=== PATIENT | male | born 1985 | race African-American/Black ===

== ENCOUNTER 2017-01-14 06:44 | Emergency (ER) | payer SELFPAY ==
--- NOTE | 2017-01-14 07:25 | PDOC ---
History of Present Illness - General Stated Complaint: SORE THROAT Time Seen by Provider: 01/14/17 07:25 History Source: Patient Exam Limitations: No Limitations - History of Present Illness Initial Comments: 01/14/17 09:00 CHIEF COMPLAINT: Throat sweeling PCP: No PCP HISTORY OF PRESENT ILLNESS: 31 year old male presented to the ED with "throat swelling". A/c to the patient , he developed swelling over the uvula since 3 days, has difficulty in swallowing, painful on/off, feels like "choking" and gets short of breath on/ off while he chokes. Patient mentions he ate spicy pasta the night before. Patient has had similar episode in the past, this is his third episode. The first time, he visited ED, was given medication and was sent home. Last year which was his second episode, took Ibuprofen and he felt better. Doesn't know what triggers it. Denies drooling of saliva, fever, chills, rigors, sweating, chest pain, palpitation, cough, abdominal pain, nausea or vomiting. Bowel/Bladder habit normal. Sleep/Appetite disturbed since his illness. Patient also mentions that his 10 year old daughter gets strep throat frequently , recently got treated with antibiotics. Recent Travel: None PAST MEDICAL HISTORY: None PAST SURGICAL HISTORY: None Social History: Smoking: Smokes marijuana 2joints/day. Doesn't smoke cigarette Alcohol: Drinks 1/2 bottle of whiskey everyday. Drugs: Marijuana only. Sexual Hx: 2 sexual partners in the last year uses condoms Family History: Unknown Allergies: NKDA Past History - Past Medical History Allergies/Adverse Reactions: Allergies Allergy/AdvReac Type Severity Reaction Status Date / Time No Known Allergies Allergy Verified 01/14/17 07:25 Home Medications: Ambulatory Orders No Home Medications 0 dose .ROUTE UTDICT 06/28/12 - Psycho/Social/Smoking Cessation Hx Anxiety: No Suicidal Ideation: No Smoking Status: Yes Smoking History: Current every day smoker Number of Cigarettes Smoked Daily: 0 Review of Systems - Review of Systems Able to Perform ROS?: Yes Comments:: 01/14/17 09:29 CONSTITUTIONAL: Absent: fever, chills, diaphoresis, generalized weakness, malaise, loss of appetite HEENT: Present: throat pain, throat swelling, difficulty swallowing Absent: rhinorrhea, nasal congestion, , mouth swelling, ear pain, eye pain, visual Changes CARDIOVASCULAR: Absent: chest pain, syncope, palpitations, irregular heart rate, lightheadedness , peripheral edema RESPIRATORY: Absent: cough, shortness of breath, dyspnea with exertion, orthopnea, wheezing, stridor, hemoptysis GASTROINTESTINAL: Absent: abdominal pain, abdominal distension, nausea, vomiting, diarrhea, constipation, melena, hematochezia GENITOURINARY: Absent: dysuria, frequency, urgency, hesitancy, hematuria, flank pain, genital pain MUSCULOSKELETAL: Absent: myalgia, arthralgia, joint swelling SKIN: Absent: rash, itching, pallor HEMATOLOGIC/IMMUNOLOGIC: Absent: easy bleeding, easy bruising, lymphadenopathy, frequent infections ENDOCRINE: Absent: unexplained weight gain, unexplained weight loss, heat intolerance, cold intolerance NEUROLOGIC: Absent: headache, focal weakness or paresthesias, dizziness, unsteady gait, seizure, mental status changes, bladder or bowel incontinence PSYCHIATRIC: Absent: anxiety, depression, suicidal or homicidal ideation, hallucinations. Is the patient limited Austrian proficient: No *Physical Exam - Physical Exam Comments: 01/14/17 09:31 PE: GENERAL: Awake, alert, and fully oriented, in no acute distress HEAD: No signs of trauma EYES: PERRLA, EOMI, sclera anicteric, conjunctiva clear ENT: Swollen uvula extending to the back of the throat,uvula deviated towards the right, left tonsils enlarged, submandibular lymph nodes enlarged NECK: Normal ROM, supple, JVD, or masses LUNGS: Breath sounds equal, clear to auscultation bilaterally. No wheezes, and no crackles.. HEART: Regular rate and rhythm, normal S1 and S2, no murmurs, rubs or gallops ABDOMEN: Soft, nontender, normoactive bowel sounds. No guarding, no rebound. No masses EXTREMITIES: Normal range of motion, no edema. No clubbing or cyanosis. No cords, erythema, or tenderness NEUROLOGICAL: Cranial nerves II through XII grossly intact. Normal speech, normal gait SKIN: Warm, Dry, normal turgor, no rashes or lesions noted. 01/14/17 13:20 ED Treatment Course - LABORATORY CBC & Chemistry Diagram: 01/14/17 08:50 01/14/17 08:50 Medical Decision Making - Medical Decision Making 01/14/17 07:20 Patient seen and examined at bed side. Vitals, unremarkable. Physical finding positive for Swollen uvula extending to the back of the throat,uvula deviated towards the right, left tonsils enlarged, submandibular lymph nodes enlarged Will order basic labs, monospot test, rapid strep test, UA, CXR IV NS @ 100mls/hr IV Ibuprofen 800mg stat IV Decadron 10mg 01/14/17 12:[address] Jose Huffman (ENT). He came to to the ED and performed flexible laryngoscope. As per his recommendations will send him home with oral antibiotics and steroids and to follow up with him at his office and there is no indication for admission at this time. A/P: # Uvular edema and possible pharyngitis Patient is hemodynamically stable, has no drooling, is able to swallow and talk without change in the voice. No complaints of difficulty in breathing. Hence he can be discharged home Patient has been advised to see Dr. Huffman in a week and to return to the Emergency Department if symptoms persist or develops new symptoms. Will send the patient on Prednisone and Augmentin Illness, Investigation and Plan of care explained to the patient. He verbalized understanding. Case seen and discussed with Dr. Azul. 01/14/17 13:33 *DC/Admit/Observation/Transfer Diagnosis at time of Disposition: Uvular edema - Discharge Dispostion Admit: No - Patient Instructions Printed Discharge Instructions: Sore Throat Additional Instructions: Your uvula is swollen and you may have had pharyngitis recently. Will give you antibiotics and steroid. Please take it as directed. Please visit ENT doctor this week at his office. Please return to the Emergency Department if symptoms persist or if any new symptoms develop.
[2017-01-14 07:28] VITALS: BP 111/66; PULSE 62; TEMP 98.1; BMI 20.9
[2017-01-14] MEDS ORDERED: IBUPROFEN 800 MG/8 ML IJ IVPB ONE ×2 (07:54→08:20)
[2017-01-14] MEDS ORDERED: DEXAMETHASONE SOD PHOSPHATE 10 MG/1 ML VIAL IVPB ONE (07:54)
[2017-01-14] MEDS ORDERED: SODIUM CHLORIDE 1,000 ML IV SCH (08:00)
[2017-01-14] MEDS ORDERED: DEXAMETHASONE SOD PHOSPHATE 10 MG/1 ML VIAL ONE (08:20)
--- NOTE | 2017-01-14 08:43 | PDOC ---
Attending Attestation - Resident Resident Name: Corie Portillo - ED Attending Attestation I have performed the following: I have examined & evaluated the patient, The case was reviewed & discussed with the resident, I agree w/resident's findings & plan, Exceptions are as noted - HPI HPI: 01/14/17 08:38 This is a 31 yo m presenting to the ER with a complaint of pain with swallowing Pt states that his symptoms have been present for the past 4 days No fevers No chills no vocal changes tolerating po pt noted uvula swelling - Physicial Exam PE: 01/14/17 08:43 On examination: uvula edema Uvula down pt throat No muffling of pt voice No drooling (+) lymph node enlargement - Medical Decision Making 01/14/17 08:44 will give motrin, decadron will send monospot will send rapid strep Pt may need to stay due to uvula edema 01/14/17 14:06 Patient seen in the ER by Dr. Huffman and is status post upper airway evaluation. Patient uvula is indeed edematous and appears to have minor trauma. Patient is safe to be discharged home Patient can take antibiotics and prednisone. Patient given strict return precautions Discharge Disposition - Diagnosis Uvular edema - Discharge Dispostion Disposition: HOME Condition at time of disposition: Improved Admit: No - Prescriptions Prescriptions: Amoxicillin/Potassium Clav [Augmentin 875-125 Tablet] 1 each PO BID #10 tablet Prednisone 40 mg PO DAILY #5 tablet - Referrals - Patient Instructions Printed Discharge Instructions: Sore Throat Additional Instructions: Your uvula is swollen and you may have had pharyngitis recently. Will give you antibiotics and steroid. Please take it as directed. Please visit ENT doctor this week at his office. Please return to the Emergency Department if symptoms persist or if any new symptoms develop. - Post Discharge Activity Work/School Note: Back to Work
[2017-01-14 08:56] LABS: BASOPHIL 0.5 % (0-2.0); EOSINOPHIL 0.6 % (0-4.5); MCH 33.7 pg (25.7-33.7); MCHC 33.5 g/dl (32.0-35.9); MEAN CELL VOLUME 100.6 fl (80-96); MEAN PLT VOLUME 8.4 fl (7.5-11.1); PLATELET COUNT 159 K/MM3 (134-434); RDW 12.4 % (11.9-15.9); WHITE BLOOD COUNT 9.1 K/mm3 (4.0-10.0)
[2017-01-14 09:33] LABS: ALBUMIN 3.8 g/dl (3.4-5.0); ALK PHOS 72 U/L (45-117); ANION GAP 10 (8-16); BILIRUBIN,TOTAL 0.8 mg/dL (0.2-1.0); CALCIUM 8.9 mg/dL (8.5-10.1); CO2 28 mmol/L (21-32); CREATININE 0.9 mg/dL (0.7-1.3); GLUCOSE,RANDOM 99 mg/dL (74-106); SGOT/AST 18 U/L (15-37); SGPT/ALT 22 U/L (12-78); TOT PROT 7.1 g/dl (6.4-8.2)
[2017-01-14 10:30] LABS: URINE APPEARANCE CLEAR; URINE BILIRUBIN NEGATIVE (NEGATIVE); URINE BLOOD NEGATIVE (NEGATIVE); URINE COLOR YELLOW; URINE GLUCOSE (UA) NEGATIVE (NEGATIVE); URINE KETONE TRACE (NEGATIVE); URINE NITRITE NEGATIVE (NEGATIVE); URINE UROBILINOGEN 2.0 E.U/dl E.U./dl (0.2-1.0)
[2017-01-14 10:33] LABS: URINE LEUK ESTERASE TRACE (NEGATIVE); URINE PROTEIN 1+ (NEGATIVE)
[2017-01-14 10:34] LABS: URINE MUCUS FEW; URINE RBC <1 /hpf (0-3); URINE WBC 10 /hpf (3-5)
--- NOTE | 2017-01-14 17:37 | CON.ENT ---
Consult Consult Specialty:: ENT Referred by:: Verenice Azul MD Reason for Consultation:: swollen uvula - History of Present Illness Chief Complaint: swollen uvula History of Present Illness: 31 yo M with recent sore throat, had pain, some neck discomfort, was not on any meds, no PMD, took Motrin ate pasta with spicy sauce last night at a restaurant, this morning woke with swelling in his throat PE in ER shows markedly swollen uvula rx IV Decadron and Benadryl improving breathing fine, was swallowing fine, voice clear feels need to clear throat because of swollen uvula, sometimes goes onto tongue. no prior problems, denies reflux, allergies or prior problems with food or medications - History Source History Provided By: Patient Limitations to Obtaining History: No Limitations - Smoking History Smoking history: Current every day smoker Aproximately how many cigarettes per day: 0 Home Medications - Allergies Allergies/Adverse Reactions: Allergies Allergy/AdvReac Type Severity Reaction Status Date / Time No Known Allergies Allergy Verified 01/14/17 07:25 - Home Medications Home Medications: Ambulatory Orders No Home Medications 0 dose .ROUTE UTDICT 06/28/12 Amoxicillin/Potassium Clav [Augmentin 875-125 Tablet] 1 each PO BID #10 tablet 01/14/17 Prednisone 40 mg PO DAILY #5 tablet 01/14/17 Family Disease History - Family Disease History Family Disease History: Other: Daughter (alive and well) Physical Exam-ENT Vital Signs: Vital Signs Temperature 98.1 F 01/14/17 07:25 Pulse Rate 62 01/14/17 07:25 Respiratory Rate 17 01/14/17 07:25 Blood Pressure 111/66 01/14/17 07:25 O2 Sat by Pulse Oximetry (%) 99 01/14/17 07:25 Constitutional: Yes: No Distress, Calm Head: Yes: WNL Face: Yes: WNL Eyes: Yes: WNL Nasal Passage: Yes: WNL Oral/Pharynx: Yes: Other (teeth, tongue, hard palate floor of mouth normal tonsils small, no infection, ++markedly swollen uvula thick, cannot see tip. Flexible laryngoscopy shows uvula into vallecula epiglottis normal, no epiglottitis, endolarynx WNL, vocal cords mobile symmetric, no stridor or respiratory distress.) Outer Ear: Yes: WNL Ear Canal: Yes: Cerumen Tympanic Membrane: Yes: Other (WNL left, not visualized right) Neck: Yes: WNL Respiratory: Yes: WNL Extremities: Yes: WNL Neurological: Yes: Alert, Oriented Psychiatric: Yes: WNL, Alert, Oriented (teeth gums hard palate normal, tongue normal, uvula very swollen and elongated, tip not visible transorally; flexible laryngoscopy shows normal base of tongue, uvula goes into valllecula, epiglottis normal, no edema vocal cords mobile symmetric, voice clear and strong , no stridor or respiratory distress)
== END 2017-01-14 14:14 | disposition home or self-care (01) ==
LOC: JER 06:44
PROC: 3E0333Z Introduction of Anti-inflammatory into Peripheral Vein, Percutaneous Approach (ICD-10-PCS; principal; 2017-01-14)
DX: K12.2 Cellulitis and abscess of mouth (principal); J35.1 Hypertrophy of tonsils; F10.10 Alcohol abuse, uncomplicated; F12.10 Cannabis abuse, uncomplicated
CPT/HCPCS: 36415; 71020-TC; 80053; 81003; 81015; 85025; 86308; 87070; 87430; 99281-25

== ENCOUNTER 2019-02-12 06:34 | Emergency (ER) | payer OTHER ==
[2019-02-12 06:46] VITALS: BP 169/92; PULSE 84; TEMP 98.8; BMI 28.2
[2019-02-12 08:59] LABS: URINE APPEARANCE CLEAR; URINE BILIRUBIN NEGATIVE (<2.0 mg/dL); URINE COLOR YELLOW; URINE GLUCOSE (UA) NEGATIVE (NEGATIVE); URINE KETONE TRACE (NEGATIVE); URINE LEUK ESTERASE NEGATIVE (NEGATIVE); URINE NITRITE NEGATIVE (NEGATIVE); URINE PROTEIN NEGATIVE (NEGATIVE); URINE UROBILINOGEN 0.2 mg/dL (0.2-1.0)
--- NOTE | 2019-02-12 09:22 | PDOC ---
History of Present Illness - General Chief Complaint: Urinary Catheter Problem Stated Complaint: Abdominal distention Time Seen by Provider: 02/12/19 07:48 History Source: Patient Exam Limitations: No Limitations - History of Present Illness Initial Comments: 02/12/19 09:19 Pt is a 33yo M with no significant PMH presenting to ED because his girlfriend told him she "had bacteria" 4 days ago. Pt only has one partner and is not using protection. He denies dysuria, hematuria, discharge, rashes, lesions, testicular pain/swelling, fevers, chills, cough, congestion, sore throat, abdominal pain, n/v/d, flank pain. Pt said he had STD's years ago but was treated with a shot and antibiotics. Last tested for HIV last month and it was negative. PMD: Arovas PMH: none PSH: none Allergies: nkda Meds: none Social: marijuana, occasional alcohol use Past History - Past Medical History Allergies/Adverse Reactions: Allergies Allergy/AdvReac Type Severity Reaction Status Date / Time No Known Allergies Allergy Verified 02/12/19 06:46 Home Medications: Ambulatory Orders NK [No Known Home Medication] 02/12/19 COPD: No - Immunization History Immunization Up to Date: Yes - Suicide/Smoking/Psychosocial Hx Smoking Status: Yes Smoking History: Never smoked Have you smoked in the past 12 months: No Number of Cigarettes Smoked Daily: 0 Information on smoking cessation initiated: No Hx Alcohol Use: No Drug/Substance Use Hx: No Review of Systems - Review of Systems Constitutional: No: Chills, Fever, Weakness HEENTM: No: Nose Congestion, Throat Pain Respiratory: No: Cough, Shortness of Breath Cardiac (ROS): No: Chest Pain, Lightheadedness, Palpitations, Syncope ABD/GI: No: Constipated, Diarrhea, Nausea, Vomiting, Abdominal cramping : No: Burning, Dysuria, Flank Pain, Hematuria, Testicular Mass, Testicular Swelling, Lesions, Testicular Pain Musculoskeletal: No: Back Pain, Joint Pain, Neck Pain Integumentary: No: Rash Neurological: No: Headache, Numbness, Tingling, Dizziness *Physical Exam - Vital Signs Last Vital Signs Temp Pulse Resp BP Pulse Ox 98.8 F 84 22 H 169/92 98 02/12/19 06:40 02/12/19 06:40 02/12/19 06:40 02/12/19 06:40 02/12/19 06:40 - Physical Exam General Appearance: Yes: Nourished, Appropriately Dressed. No: Apparent Distress HEENT: positive: EOMI, SKIP, Normal ENT Inspection Neck: positive: Trachea midline, Supple. negative: Lymphadenopathy (R), Lymphadenopathy (L) Respiratory/Chest: positive: Lungs Clear, Normal Breath Sounds. negative: Crackles, Rales, Rhonchi, Stridor, Wheezing Cardiovascular: positive: Regular Rhythm, Regular Rate, S1, S2. negative: Edema , JVD, Murmur Vascular Pulses: Carotid (R): 2+, Carotid (L): 2+, Dorsalis-Pedis (R): 2+, Doralis-Pedis (L): 2+ Gastrointestinal/Abdominal: positive: Normal Bowel Sounds, Soft. negative: Tender Musculoskeletal: negative: CVA Tenderness Extremity: positive: Normal Capillary Refill. negative: Pedal Edema Integumentary: positive: Normal Color, Dry, Warm Neurologic: positive: clerk telegraph service II-XII NML intact, Fully Oriented, Alert, Normal Mood/ Affect, Normal Response, Motor Strength / ED Treatment Course - ADDITIONAL ORDERS Additional order review: Laboratory Results 02/12/19 07:58 Urine Color Yellow Urine Appearance Clear Urine pH 5.0 Ur Specific [place] 1.028 Urine Protein Negative Urine Glucose (UA) Negative Urine Ketones Trace H Urine Blood Negative Urine Nitrite Negative Urine Bilirubin Negative Urine Urobilinogen 0.2 Ur Leukocyte Esterase Negative Medical Decision Making - Medical Decision Making 02/12/19 10:09 Pt is a 33yo M with no significant PMH presenting to ED because his girlfriend told him she "had bacteria" 4 days ago. Pt only has one partner and is not using protection. He denies dysuria, hematuria, discharge, rashes, lesions, testicular pain/swelling, fevers, chills, cough, congestion, sore throat, abdominal pain, n/v/d, flank pain. Pt said he had STD's years ago but was treated with a shot and antibiotics. Last tested for HIV last month and it was negative. Vitals: wnl PE: benign ddx includes but not limited to BV, GC, HIV -UA, UCx, GC amp Urine negative for infection. will prophylactically treat pt. given Rocephin 250IM and 1g Azithromycin. Pt otherwise stable, willl dc home. Given return precautions 02/12/19 19:39 *DC/Admit/Observation/Transfer Diagnosis at time of Disposition: STD exposure - Discharge Dispostion Disposition: HOME Condition at time of disposition: Improved Decision to Admit order: No - Referrals Referrals: Aidan Gilbert [Primary Care Provider] - - Patient Instructions Printed Discharge Instructions: Facts About Sexually Transmitted Infections Additional Instructions: You were seen in the emergency room today for concerns about STD. The urine test is still pending but we treated you here in the emergency room. Please be safe and use protection. Come back to the emergency room if you notice any rashes or lesions, you develop sores, you have discharge, you notice any testicular pain or swelling, or if any new concerning symptom develops. - Post Discharge Activity Forms/Work/School Notes: Back to Work
[2019-02-12] MEDS ORDERED: AZITHROMYCIN 500 MG TABLET PO ONE (09:37)
--- NOTE | 2019-02-12 09:53 | PDOC ---
Attending Attestation - Resident Resident Name: Leeanna Guerrero - ED Attending Attestation I have performed the following: I have examined & evaluated the patient, The case was reviewed & discussed with the resident, I agree w/resident's findings & plan - HPI HPI: 02/12/19 09:51 healthy 33y/o M presents for evaluation after his girlfriend told him she has "bacteria" in her vagina. + sexually active with her without condoms, has h/o treated STI. no symptoms, no dysuria/pain/discharge. - Physicial Exam PE: 02/12/19 09:52 afebrile, exam normal - Medical Decision Making 02/12/19 09:52 33y/o M with possible STI exposure, no symptoms. UA clear, GC/chlamydia sent will prophylax with cef/azithro. offered more extensive STI testing but patient states was just tested and negative and is not concerned about those exposures, so declined.
== END 2019-02-12 10:15 | disposition home or self-care (01) ==
LOC: JER 06:34
DX: Z20.2 Contact with and (suspected) exposure to infections with a predominantly sexual mode of transmission (principal)
CPT/HCPCS: 36415; 81003; 87086; 87491; 87591; 96372; 99282-25

== ENCOUNTER 2019-03-22 10:58 | Emergency (ER) | payer OTHER ==
[2019-03-22 11:08] VITALS: BP 147/99; PULSE 74; TEMP 98.4; BMI 23.0
--- NOTE | 2019-03-22 12:12 | PDOC ---
*Physical Exam - Vital Signs Last Vital Signs Temp Pulse Resp BP Pulse Ox 98.4 F 74 18 147/99 98 03/22/19 11:05 03/22/19 11:05 03/22/19 11:05 03/22/19 11:05 03/22/19 11:05 Medical Decision Making - Medical Decision Making 03/22/19 12:11 Pt left prior to provider evaluation *DC/Admit/Observation/Transfer Diagnosis at time of Disposition: Patient left before evaluation by physician, Nausea & vomiting - Discharge Dispostion Disposition: LEFT BEFORE MED EVAL, AJ[facility] Condition at time of disposition: Unchanged/Unknown - Referrals Referrals: ON STAFF,NOT [Primary Care Provider] - - Patient Instructions - Post Discharge Activity
--- NOTE | 2019-03-22 12:47 | PDOC ---
History of Present Illness - General Chief Complaint: Nausea/Vomiting Stated Complaint: VOMITING/ CONSTIPATION Time Seen by Provider: 03/22/19 12:01 Past History - Past Medical History Allergies/Adverse Reactions: Allergies Allergy/AdvReac Type Severity Reaction Status Date / Time No Known Allergies Allergy Verified 02/12/19 06:46 Home Medications: Ambulatory Orders NK [No Known Home Medication] 02/12/19 COPD: No - Immunization History Immunization Up to Date: Yes - Suicide/Smoking/Psychosocial Hx Smoking Status: Yes Smoking History: Current every day smoker Have you smoked in the past 12 months: Yes Number of Cigarettes Smoked Daily: 0 Information on smoking cessation initiated: No Hx Alcohol Use: Yes Drug/Substance Use Hx: Yes (WEED) *Physical Exam - Vital Signs Last Vital Signs Temp Pulse Resp BP Pulse Ox 98.4 F 74 18 147/99 98 03/22/19 11:05 03/22/19 11:05 03/22/19 11:05 03/22/19 11:05 03/22/19 11:05 Medical Decision Making - Medical Decision Making 03/22/19 12:46 Unable to find patient to assess patient. Patient not in the hallway bathrooms or on the ER ran. Patient be considered and LBM E *DC/Admit/Observation/Transfer Diagnosis at time of Disposition: Patient left before evaluation by physician - Discharge Dispostion Disposition: LEFT BEFORE [facility] Condition at time of disposition: Unchanged/Unknown - Referrals Referrals: ON STAFF,NOT [Primary Care Provider] - - Patient Instructions - Post Discharge Activity
== END 2019-03-22 12:47 | disposition left against medical advice (07) ==
LOC: JER 10:58
DX: Z53.21 Procedure and treatment not carried out due to patient leaving prior to being seen by health care provider (principal)
CPT/HCPCS: 99281-25

== ENCOUNTER 2024-06-13 19:34 | Emergency (ER) | payer SELFPAY ==
[2024-06-13 20:06] VITALS: TEMP 98.8; BMI 19.5
[2024-06-14 00:37] VITALS: BP 116/77; RESP 16
[2024-06-14 00:38] VITALS: PULSE 89
== END 2024-06-14 06:20 | disposition home or self-care (01) ==
LOC: JER 19:34
DX: F10.129 Alcohol abuse with intoxication, unspecified (principal); R11.10 Vomiting, unspecified; Y90.9 Presence of alcohol in blood, level not specified
CPT/HCPCS: 82962; 99282-25

== ENCOUNTER 2025-03-28 16:57 | Inpatient (IN) | payer OTHER ==
[2025-03-28] MEDS ORDERED: ACETAMINOPHEN 500 MG TABLET (FP) ONE (18:22)
[2025-03-28] MEDS ORDERED: IBUPROFEN 400 MG TABLET (FP) PO ONE (18:30)
[2025-03-28] MEDS: ACETAMINOPHEN 500 MG TABLET (FP) PO ONE (18:31)
[2025-03-28] MEDS: IBUPROFEN 400 MG TABLET (FP) PO ONE (18:41)
[2025-03-28 19:09] LABS: ABSOLUTE IMMATURE GRANULOCYTES 0.01 x10^3/uL (0.0-0.031); HEMOGLOBIN 11.6 g/dL (13.7-17.5); MONOCYTE % 6.5 % (5.3-12.2)
[2025-03-28 19:10] LABS: BASOPHILS # 0.04 x10^3/uL (0.01-0.08); EOSINOPHIL % 0.6 % (0.8-7.0); EOSINOPHILS # 0.03 x10^3/uL (0.04-0.54); HEMATOCRIT 34.8 % (40.1-51.0); MCHC 33.3 g/dl (32.3-36.5); MEAN CELL VOLUME 102.7 fl (79.0-92.2); MEAN PLT VOLUME 9.2 fl (9.4-12.4); MONOCYTE # 0.35 x10^3/uL (0.30-0.82); PLATELET COUNT 205 x10^3/uL (163-337); RDW 12.5 % (12.0-15.6)
[2025-03-28 19:32] LABS: CALCIUM 9.3 mg/dL (8.5-10.1); POTASSIUM 3.6 mmol/L (3.5-5.1)
[2025-03-28 19:34] LABS: ALBUMIN 3.8 g/dl (3.4-5.0)
[2025-03-28 19:38] LABS: BILIRUBIN,TOTAL 0.4 mg/dL (0.2-1); TOT PROT 6.7 g/dl (6.4-8.2)
[2025-03-28 19:51] LABS: ERYTHROCYTE SEDIMENTATION RATE 3 mm/hr (0-10)
[2025-03-28 20:32] LABS: HCV DIAGNOSTIC IN-HOUSE W/RFLX NON-REACTIVE (NONREACTIVE); HIV INTERPRETATION NEGATIVE (NEGATIVE)
[2025-03-28] MEDS: CLINDAMYCIN 900 MG PREMIX IVPB 900 MG/50 ML BAG IVPB ONE (22:15)
[2025-03-28] MEDS: SODIUM CHLORIDE 1,000 ML IV SCH (22:16)
[2025-03-29] MEDS ORDERED: ACETAMINOPHEN 325 MG TABLET (FP) PO PRN (01:30)
[2025-03-29 01:31] VITALS: BMI 20.6
[2025-03-29] MEDS: CLINDAMYCIN 300 MG PREMIX IVPB 300 MG/50 ML BAG IVPB SCH (02:49)
[2025-03-29] MEDS ORDERED: CLINDAMYCIN HCL 150 MG CAPSULE (FP) PO SCH (06:00)
[2025-03-29] MEDS ORDERED: AMOX TR/POT CLAV 875MG/125MG TABLETS (FP) PO SCH (08:00)
[2025-03-29] MEDS: THIAMINE 100 MG TABLET PO SCH (09:02)
[2025-03-29] MEDS: FOLIC ACID 1 MG TABLET (FP) PO SCH (09:02)
[2025-03-29] MEDS ORDERED: ENOXAPARIN NA (PORCINE) 40 MG/0.4 ML DISP.SYRIN SQ SCH (10:00)
[2025-03-29 10:34] LABS: BASOPHILS # 0.03 x10^3/uL (0.01-0.08); HEMOGLOBIN 11.6 g/dL (13.7-17.5); MEAN CELL VOLUME 102.9 fl (79.0-92.2); MEAN PLT VOLUME 9.9 fl (9.4-12.4)
[2025-03-29 10:35] LABS: ABSOLUTE IMMATURE GRANULOCYTES 0.05 x10^3/uL (0.0-0.031); EOSINOPHIL % 0.9 % (0.8-7.0); EOSINOPHILS # 0.04 x10^3/uL (0.04-0.54); HEMATOCRIT 35.8 % (40.1-51.0); MCHC 32.4 g/dl (32.3-36.5); MONOCYTE % 6.6 % (5.3-12.2); PLATELET COUNT 198 x10^3/uL (163-337); RDW 12.6 % (12.0-15.6)
[2025-03-29 10:55] LABS: POTASSIUM 4.5 mmol/L (3.5-5.1)
[2025-03-29 11:04] LABS: BLOOD UREA NITROGEN 12.8 mg/dL (7-18); CALCIUM 9.2 mg/dL (8.5-10.1); MAGNESIUM 1.5 mg/dL (1.8-2.4)
[2025-03-29 11:05] LABS: ALBUMIN 3.5 g/dl (3.4-5.0)
[2025-03-29 11:08] LABS: CREATININE 0.9 mg/dL (0.55-1.3)
[2025-03-29 11:09] LABS: BILIRUBIN,TOTAL 0.6 mg/dL (0.2-1); PHOSPHOROUS 3.6 mg/dL (2.5-4.9)
[2025-03-29 11:10] LABS: TOT PROT 6.2 g/dl (6.4-8.2)
[2025-03-29 13:22] LABS: COCAINE, UR NEGATIVE (NEGATIVE); METHADONE, UR NEGATIVE (NEGATIVE); OPIATES, URI NEGATIVE (NEGATIVE); PHENCYCLIDINE,URINE NEGATIVE (NEGATIVE); URINE AMPHETAMINES NEGATIVE (NEGATIVE); URINE BARBITURATES NEGATIVE (NEGATIVE); URINE BENZODIAZEPINES NEGATIVE (NEGATIVE)
[2025-03-29] MEDS: AMPICILLIN NA/SULBACTAM NA 3 GM in SODIUM CHLORIDE 100 ML IVPB SCH (17:50)
[2025-03-30 09:13] LABS: HEMATOCRIT 38.1 % (40.1-51.0); HEMOGLOBIN 12.6 g/dL (13.7-17.5); MCHC 33.1 g/dl (32.3-36.5); MEAN CELL VOLUME 102.4 fl (79.0-92.2); MEAN PLT VOLUME 10.2 fl (9.4-12.4); PLATELET COUNT 207 x10^3/uL (163-337); RDW 12.3 % (12.0-15.6)
[2025-03-30 09:47] LABS: CREATININE 0.9 mg/dL (0.55-1.3)
[2025-03-30 09:48] LABS: PHOSPHOROUS 3.6 mg/dL (2.5-4.9)
[2025-03-30 09:49] LABS: BILIRUBIN,TOTAL 0.7 mg/dL (0.2-1); TOT PROT 6.4 g/dl (6.4-8.2)
[2025-03-30 09:55] LABS: ALBUMIN 3.4 g/dl (3.4-5.0); BLOOD UREA NITROGEN 8.8 mg/dL (7-18)
[2025-03-30 09:56] LABS: CALCIUM 9.3 mg/dL (8.5-10.1); MAGNESIUM 1.9 mg/dL (1.8-2.4)
[2025-03-30 18:39] VITALS: RESP 18
[2025-03-31 06:35] VITALS: TEMP 98.2
[2025-03-31 11:33] VITALS: BP 146/99
[2025-03-31] MEDS: amLODIPine BESYLATE 5 MG TABLET (FP) PO ONE (11:54)
[2025-03-31 13:00] VITALS: PULSE 55
== END 2025-03-31 13:05 | disposition home or self-care (01) | DRG 384 ==
LOC: JER 16:57 → JERBED 20:08 → OBSVTOIN 21:06 → J5S 22:42
PROVIDERS: ADMIT Student in an Organized Health Care Education/Training Program
DX: S61.451A Open bite of right hand, initial encounter (principal); F10.20 Alcohol dependence, uncomplicated; S61.411A Laceration without foreign body of right hand, initial encounter; W50.3XXA Accidental bite by another person, initial encounter; Y93.89 Activity, other specified; Y92.89 Other specified places as the place of occurrence of the external cause; Y99.8 Other external cause status
CPT/HCPCS: 36415; 73130-TC-RT-FY; 73218-TC-RT; 80053; 80307; 83735; 84100; 85025; 85027; 85651; 86140; 86803; 87389; 99285-25; G0378